=== PATIENT | female | born 1965 | race Caucasian/White ===

== ENCOUNTER → 2017-09-20 | Outpatient (CLI) | payer BC ==
--- NOTE | 2017-09-20 09:53 | MR ---
EXAMINATION TYPE: MR lumbar spine wo con DATE OF EXAM: 09/20/2017 COMPARISON: NONE HISTORY: Back pain CONTRAST: 0 mL intravenous Gadavist. TECHNIQUE: Multiplanar, multisequence images of the lumbar spine were acquired. FINDINGS: L5-S1: Broad-based central focal bulge is present at L5-S1 with moderate epidural space impression. T his has developed from the comparison of 2013. No spinal canal stenosis is present. There is mild ri ght foraminal narrowing. Some disc desiccation is present. Disc height is preserved. L4-L5: Central focal bulge is present with moderate anterior thecal sac compression. This has increas ed from the comparison of 2013. Some small subligamentous disc extension posterior to the L4 level ma y be present without significant thecal sac compression. No AP spinal canal stenosis is present. [place] john narrowing is not present. L3-L4: There is a small central focal bulge with mild anterior thecal sac compression. No AP spinal c anal stenosis present. Neural foramen are patent. Disc height and disc hydration appear normal. L2-L3: Minimal disc bulge is present with anterior thecal sac contact. No spinal canal stenosis. Neur al foramen are patent. L1-L2: Small central focal bulge is present with mild anterior thecal sac compression. No spinal boni l stenosis or neural foraminal stenosis is present. T12-L1: No significant disc bulge or disc herniation. No spinal canal stenosis. No foraminal stenos is. Neural foramen are patent.. IMPRESSION: 1. Moderate central focal bulging L5-S1 without significant thecal sac compression or spinal canal st enosis. This is an interval change from prior study. 2. Increasing central focal bulge with mild anterior thecal sac compression L4-5. This may have some minimal central subligamentous disc extension without significant thecal sac compression.
== END | disposition home or self-care (01) ==
LOC: RADMRIMAIN 07:34
PROVIDERS: ATTEND Internal Medicine
DX: M51.27 Other intervertebral disc displacement, lumbosacral region (principal)
CPT/HCPCS: 72148

== ENCOUNTER 2022-03-14 17:48 | Emergency (ER) | payer BC ==
[2022-03-14 17:55] VITALS: BP 147/84; PULSE 95; RESP 18; TEMP 98.3
--- NOTE | 2022-03-14 18:12 | ED ---
Skin/Abscess/FB HPI - General Chief complaint: Skin/Abscess/Foreign Body Stated complaint: January 07 procedure/Abd pain Time Seen by Provider: 03/14/22 17:58 Source: patient Mode of arrival: ambulatory Limitations: no limitations - History of Present Illness Initial comments: Patient is a 56-year-old female presenting with concerns regarding her ostomy bag. Patient states that she was seen at [facility] for increased swelling of the intestine within the ostomy bag. She states she was given instructions to follow up with her surgeon and discharged home. Patient states that the swelling has gotten worse. She denies any pain, fever, chills, nausea, vomiting, discharge, difficulty expressing stool, abdominal pain, chest pain, shortness of breath, palpitations, weakness. - Related Data Home Medications Medication Instructions Recorded Confirmed Cyclobenzaprine [Flexeril] 1 tab PO BID PRN 12/19/13 01/21/14 Hydrocodone/Acetaminophen [[place] 5 tab PO QID PRN 12/19/13 01/21/14 5-325] Allergies Allergy/AdvReac Type Severity Reaction Status Date / Time No Known Allergies Allergy Verified 03/14/22 17:55 Review of Systems ROS Statement: Those systems with pertinent positive or pertinent negative responses have been documented in the HPI. ROS Other: All systems not noted in ROS Statement are negative. Past Medical History Past Medical History: No Reported History Additional Past Medical History / Comment(s): PAIN PROCEDURES History of Any Multi-Drug Resistant Organisms: None Reported Past Surgical History: Tubal Ligation Additional Past Surgical History / Comment(s): Novasure proceedure. Hx broken right wrist. Pain Clinc Injection Hx., ostomy december 2021 Past Anesthesia/Blood Transfusion Reactions: No Reported Reaction Past Psychological History: No Psychological Hx Reported Smoking Status: Never smoker Past Alcohol Use History: None Reported Past Drug Use History: None Reported General Exam Limitations: no limitations General appearance: alert, in no apparent distress Head exam: Present: atraumatic, normocephalic, normal inspection Eye exam: Present: normal appearance, EOMI. Absent: scleral icterus, periorbital swelling Neck exam: Present: normal inspection Respiratory exam: Present: normal lung sounds bilaterally. Absent: respiratory distress, wheezes, rales, rhonchi, stridor Cardiovascular Exam: Present: regular rate, normal rhythm, normal heart sounds. Absent: systolic murmur, diastolic murmur, rubs, gallop, clicks GI/Abdominal exam: Present: soft, other (There is evidence of stomal prolapse within the ostomy bag, no pain on palpation or redness surrounding the area). Absent: distended, tenderness, guarding, rebound, rigid Neurological exam: Present: alert, oriented X3, CN II-XII intact Psychiatric exam: Present: normal affect, normal mood Skin exam: Present: warm, dry, intact, normal color. Absent: rash Course Vital Signs 03/14/22 17:49 Temperature 98.3 F Pulse Rate 95 Respiratory 18 Rate Blood Pressure 147/84 O2 Sat by Pulse 100 Oximetry Medical Decision Making - Medical Decision Making Patient is a 56-year-old female presenting with concerns for her ostomy. Patient states she has had increased swelling near the area and stomal prolapse that is growing. Patient denies any pain, fever, chills, nausea, vomiting, difficulty emptying stool. On examination there is some prolapse within the ostomy bag, there is no indication of infection. I instructed the patient to follow up with her surgeon. I reduced the prolapse back into the stoma. Report back to ER with any new or worsening symptoms. Discussed return parameters and answered all questions. Patient conveyed verbal understanding and agreed to the plan. I discussed this case with my attending Dr. Duenas. Disposition Clinical Impression: Prolapse of stoma Disposition: HOME SELF-CARE Condition: Good Instructions (If sedation given, give patient instructions): Colostomy Care (ED) Additional Instructions: Follow-up with PCP and surgeon in one to 3 days. Report back to ER with any new or worsening symptoms. Is patient prescribed a controlled substance at d/c from ED?: No Referrals: Chanel Diaz MD [Primary Care Provider] - 1-2 days Time of Disposition: 18:12
== END 2022-03-14 18:23 | disposition home or self-care (01) ==
LOC: EC 17:48
DX: K94.03 Colostomy malfunction (principal)
CPT/HCPCS: 99282

== ENCOUNTER → 2022-12-24 | Outpatient (CLI) | payer BC ==
--- NOTE | 2022-12-24 12:00 | BD ---
EXAMINATION TYPE: Axial Bone Density DATE OF EXAM: 12/24/2022 CLINICAL HISTORY: 57 years old Female. ICD-10 CODE: Z13.820 SCREENING FOR OSTEOPOROSIS Height: 60.5 Weight: 108.7 FRAX RISK QUESTIONS: Alcohol (3 or more units per day): no Family History (Parent hip fracture): no Glucocorticoids (More than 3mos): no History of Fracture in Adulthood: wrist Secondary Osteoporosis: 1. Type 1 Diabetes: no 2. Hyperthyroidism: no 3. Menopause before 45: no 4. Malnutrition: no 5. Chronic liver disease: no Rheumatoid Arthritis: no Current Tobacco Use: no RISK FACTORS HISTORY OF: Hip Fracture (Right/Left): no Spine Fracture: no History of Wrist Fracture: Rt wrist When: age 51 Surgery to Spine/Hip(right/left)/Wrist (right/left): no Family History of Osteoporosis: Mother Active: yes Diet low in dairy products/other sources of calcium: no Postmenopausal woman: yes Take estrogen and/or progesterone medications: no Lost more than 2 inches in height since high school: no Frequent falls: no Poor Health: no Hyperparathyroidism: no Adrenal Insufficiency: no MEDICATIONS: Prednisone or other steroids: no Thyroid Medications: no Osteoporosis Medications: no Additional Medications: Vit D Additional History: EXAM MEASUREMENTS: Bone mineral densitometry was performed using the Digital [employer] System. Bone mineral density as measured about the Lumbar spine is: ----- L1-L4(G/cm2): 0.881 T Score Values are as follows: ----- L1: -2.0 ----- L2: -3.2 ----- L3: -2.6 ----- L4: -2.3 ----- L1-L4: -2.5 Z Score Values are as follows: ----- L1: -0.5 ----- L2: -1.6 ----- L3: -1.0 ----- L4: -0.7 ----- L1-L4: -2.5 Baseline study Bone mineral density about the R hip (g/cm2): 0.652 Bone mineral density about the L hip (g/cm2): 0.670 T Score values are as follows: -----R Neck: -3.3 -----L Neck: -3.0 -----R Total: -2.8 -----L Total: -2.7 Z Score values are as follows: -----R Neck: -1.8 -----L Neck: -1.5 -----R Total: -1.6 -----L Total: -1.5 Baseline study FRAX%s: The graph provided illustrates a 24.8% chance for a major osteoporotic fx and a 9.3% chance f or the hips probability for fx in 10 years time. IMPRESSION: Osteoporosis (T Score less than -2.5). There is increased fracture risk and therapy is usually indicated based on age. Re-Screen 1-2 years. NOTE: T-SCORE=SD OF THE YOUNG ADULT MEAN.
== END | disposition home or self-care (01) ==
LOC: RADBDWWP 10:32
PROVIDERS: ATTEND Family Medicine
DX: Z13.820 Encounter for screening for osteoporosis (principal); M81.0 Age-related osteoporosis without current pathological fracture; M85.89 Other specified disorders of bone density and structure, multiple sites
CPT/HCPCS: 77080